=== PATIENT | female | born 1945 | race Caucasian/White ===

== ENCOUNTER 2020-07-27 16:39 | Observation (INO) ==
--- NOTE | 2020-07-27 17:15 | XRay Report ---
INDICATION: cp TECHNIQUE: AP portable upright chest x-ray COMPARISON: None FINDINGS:Surgical clips in left axilla Lungs:Lungs are negative. No focal pulmonary parenchymal infiltrate or mass Heart, vascular:No significant cardiomegaly. Pulmonary vascularity is normal. No pulmonary edema or pulmonary congestion Mediastinum, richard:No mediastinal widening. No hilar mass Pleura:Mildly elevated right hemidiaphragm. Pleural sutures in the left lung apex Skeletal:Negative. IMPRESSION: 1. No acute abnormality 2. Mildly elevated right hemidiaphragm 3. Surgical pleural sutures in the left upper hemithorax Interpreted and Authenticated by: Jeff Merchant 07/27/20
[2020-07-27] MEDS ORDERED: ONDANSETRON 4 MG/2 ML VIAL IV ONE (17:16)
[2020-07-27] MEDS ORDERED: LACTATED RINGERS 1,000 ML IV ONE (17:21)
[2020-07-27] MEDS ORDERED: HYDROmorphone 1 MG/ML SYRINGE IV PRN (17:21)
--- NOTE | 2020-07-27 17:39 | Emergency Department Note ---
HPI General Chief complaint: Chest Pain Stated complaint: CHEST PAIN Time Seen by Provider: 07/27/20 16:55 Source: patient Mode of arrival: ambulatory Limitations: no limitations History of Present Illness HPI Narrative: Narrative: Patient is a pleasant 75-year-old female who presents with 2 to 3 days of right upper quadrant abdominal pain. She noted that it actually may have started earlier in the week after she had had pizza but seem to get better. She has been with persistent right upper quadrant pain with intermittent nausea vomiting over the past 2 days. She denies any fall or trauma. She does not have any trouble breathing but the pain seems to take her breath away and the right upper quadrant pain gets worse when she takes a deep breath. She has not had any diarrhea. No blood in the vomitus. She notes that it radiates around to her right mid back but no radiation to the shoulder blade. She is on Eliquis for treatment of atrial fibrillation. She has not had any urinary problems. She is with a history of prior breast cancer treated 2 years ago with lumpectomy and lymph node resection. Related Data Home Medications Medication Instructions Recorded Confirmed apixaban 5 mg tablet 5 mg PO BID 05/08/19 07/27/20 halobetasol propionate 0.05 % 1 applic TOPICAL BID 05/08/19 07/27/20 topical ointment amlodipine 5 mg tablet 5 mg PO QDAY 05/09/19 07/27/20 anastrozole 1 mg tablet 1 mg PO QDAY 05/09/19 07/27/20 calcium phosphate 250 mg-vit D3 2 tab PO QDAY tab 05/09/19 07/27/20 12.5 mcg (500 unit) chewable tablet cholecalciferol (vitamin D3) 1,000 unit PO QDAY ml 05/09/19 07/27/20 Previous Rx's Medication Instructions Recorded metoprolol succinate 50 mg 50 mg PO QDAY #90 tab 06/30/20 tablet,extended release 24 hr Allergies Allergy/AdvReac Type Severity Reaction Status Date / Time latex Allergy Unknown Rash Verified 07/27/20 16:41 promethazine [From Phenergan] Allergy Unknown Agitation Verified 07/27/20 16:41 Sulfa (Sulfonamide Allergy Unknown Rash Verified 07/27/20 16:41 Antibiotics) Review of Systems ROS ROS Narrative: Narrative: A 10 system review of systems was performed and found to be negative except as outlined above. [facility] Narrative Patient History Narrative: Narrative: Medical/Surgical/Family History All Active Problems (Updated 07/28/20 @ 01:30 by Nelson Mercedes MD) Acute cholecystitis (Acute) Right knee pain (Acute) Right hip pain (Acute) Medicare annual wellness visit, initial (Acute) Vaginal itching (Acute) Tricuspid regurgitation (Chronic) Seasonal allergic rhinitis (Chronic) Malignant neoplasm of central portion of left female breast (Chronic) Hypertension (Chronic) Paroxysmal A-fib (Chronic) Depression with anxiety (Chronic) Eczema (Chronic) Pain of left hip joint (Chronic) Breast cancer (Chronic ~2018) Bleeding tendency (Chronic) Medical History Bleeding tendency Breast cancer (~2018) Left, followed by [facility] oncology Dr. Hui, had radiation and takes anastrozole Depression with anxiety 05/09/2019 PHQ 9= 2. stable on citalopram 20, continue follow-up 4 months 09/10/2019 stable, continue citalopram Eczema Followed by Dr. Joe dermatology Hypertension 05/09/2019 stable on amlodipine 5 and metoprolol 50, continue, follow-up 4 months 09/10/2019 continue current regimen of medication, return for fasting labs Malignant neoplasm of central portion of left female breast Medicare annual wellness visit, initial Pain of left hip joint Chronic, never has done physical therapy Paroxysmal A-fib Followed by [place] [facility]ology at [facility] Dr. Orellana and Pooja Pelayo Seasonal allergic rhinitis spring and fall, takes OTC medication and helpful Tricuspid regurgitation per cardiology Surgical History H/O: hysterectomy total, 1999, heavy bleeding due to veins History of bunionectomy of right great toe History of colonoscopy (~2012) Dr Augustin History of left breast biopsy (01/31/19) History of surgery Parietial pleurectomy Status post left breast lumpectomy radiation dr Angela Family History Father Arthritis A-fib Brother Cancer High blood pressure 2 brothers Heart attack Cancer of kidney Prostate cancer Mesothelioma A-fib Sister Cancer CLL (chronic lymphocytic leukemia) Thyroid disorder Grandfather Cancer Maternal Tuberculosis Maternal Malignant tumor of colon Maternal Family/Other Diabetes Maternal Aunt Tuberculosis Maternal Uncle Mother High blood pressure Chronic vertigo High cholesterol Unknown Rheumatoid arthritis Social History Smoking Status: Never smoker Alcohol Intake Frequency: 0-2 drinks per day Substance Use: does not use Exam Narrative Narrative: Narrative: General: Alert, Nontoxic, speaking full sentences without dyspnea. Accompanied by her Vinny. She is with intermittent dry heaves. HEENT: NCAT, PERRL, Oral pharynx with moist mucus membranes. No pharyngeal eryt дмитрий. No conjunctival pallor Neck: Supple, No lymphadenopathy Chest: Stable Heart: Regular rate in the 80s to 90s at time of the exam and regular rhythm without murmur Lungs: Clear to auscultation bilaterally Abdomen: Soft, nondistended, nontender except in the right upper quadrant with equivocal Gutierrez sign : No bladder distention Back: Nontraumatic, No CVA tenderness to palpation. Skin: Left mid back eczema Extremity: No cyanosis or edema, pulses 2+ radial. No calf swelling or tenderness to palpation Neurologic: Moves all extremities in appropriate coordinated fashion. General Limitations: no limitations Course Vital Signs Vital signs: Vital Signs Temperature 97.0 F 07/27/20 16:39 Pulse Rate 82 07/27/20 16:39 Respiratory Rate 16 07/27/20 16:39 Blood Pressure 143/56 07/27/20 16:39 Pulse Oximetry (%) 98 07/27/20 16:39 Temperature 98.3 F 07/27/20 22:33 Pulse Rate 72 07/27/20 22:33 Respiratory Rate 16 07/27/20 22:33 Blood Pressure 152/79 07/27/20 22:33 Pulse Oximetry (%) 94 07/27/20 22:33 [facility] MDM Narrative Medical decision making narrative: Narrative: Patient presented with right upper quadrant pain primarily and with the description of the pain as well as the radiation as well as concern with gallbladder. Ultrasound did confirm cholelithiasis but also showed pericholecystic fluid and gallbladder wall thickening. Fortunately her liver function studies and lipase were normal. I believe her gallbladder findings on ultrasound are consistent with her symptoms. She is with good oxygen saturations no fever. Certainly she could be a consideration for outpatient follow-up with surgery but given that she has had recurrent episodes of nausea and retching here I feel that she would be more likely to fail attempted outpatient follow-up. I have consulted surgery and patient will be admitted for planned cholecystectomy. With her vomiting she had not taken her Eliquis today and hopefully would be candidate for procedure by tomorrow afternoon. Lab Data Result diagrams: 07/27/20 16:55 07/27/20 16:55 Labs: Lab Results 07/27/20 07/27/20 07/27/20 Range/Units 16:55 16:55 16:55 WBC 8.4 (4.5-11.0) K/mcL RBC 3.91 L (4.00-5.20) M/mcL Hgb 13.4 (12.0-15.0) g/dL Hct 39.7 (36.0-48.0) % MCV 101.5 H (80.0-100.0) fL MCH 34.3 H (26.0-34.0) pg MCHC 33.8 (31.0-36.0) g/dL RDW 12.6 (11.5-14.5) % Plt Count 301 (140-440) K/mcL MPV 10.1 (7.4-10.4) fL Neut % (Auto) 76.1 (38.0-78.0) % Lymph % (Auto) 15.1 (15.0-49.0) % [place] % (Auto) 5.5 (1.0-12.0) % Eos % (Auto) 2.8 (0.0-7.0) % Baso % (Auto) 0.5 (0.0-2.0) % Lymph # (Auto) 1.26 L (1.50-4.80) K/mcL [place] # (Auto) 0.46 (0.10-0.90) K/mcL Eos # (Auto) 0.23 (0.00-0.70) K/mcL Baso # (Auto) 0.04 (0.00-0.20) K/mcL Absolute Neutrophils 6.37 (1.80-8.00) K/mcL VBG Lactic Acid (0.5-2.0) mmol/L Sodium 134 (133-145) mmol/L Potassium 3.9 (3.3-5.1) mmol/L Chloride 98 (96-108) mmol/L Carbon Dioxide 26 (22-30) mmol/L Anion Gap 10.0 (8.0-16.0) BUN 17 (8-23) mg/dL Creatinine 1.0 (0.6-1.1) mg/dL GFR Calculation 55 Glucose 124 H (70-105) mg/dL Calcium 9.4 (8.6-10.4) mg/dL Total Bilirubin 0.8 (0.1-1.0) mg/dL AST 20 (<32) U/L ALT 16 (<40) U/L Alkaline Phosphatase 112 (39-117) U/L Troponin T < 0.01 (<0.03) ng/mL Total Protein 7.5 (5.9-8.4) gm/dL Albumin 4.1 (3.2-5.2) gm/dL Globulin 3.4 (2.2-3.7) gm/dL Albumin/Globulin Ratio 1.2 (1.0-2.3) Lipase (7-60) U/L 07/27/20 07/27/20 Range/Units 16:55 18:52 WBC (4.5-11.0) K/mcL RBC (4.00-5.20) M/mcL Hgb (12.0-15.0) g/dL Hct (36.0-48.0) % MCV (80.0-100.0) fL MCH (26.0-34.0) pg MCHC (31.0-36.0) g/dL RDW (11.5-14.5) % Plt Count (140-440) K/mcL MPV (7.4-10.4) fL Neut % (Auto) (38.0-78.0) % Lymph % (Auto) (15.0-49.0) % [place] % (Auto) (1.0-12.0) % Eos % (Auto) (0.0-7.0) % Baso % (Auto) (0.0-2.0) % Lymph # (Auto) (1.50-4.80) K/mcL [place] # (Auto) (0.10-0.90) K/mcL Eos # (Auto) (0.00-0.70) K/mcL Baso # (Auto) (0.00-0.20) K/mcL Absolute Neutrophils (1.80-8.00) K/mcL VBG Lactic Acid 1.7 (0.5-2.0) mmol/L Sodium (133-145) mmol/L Potassium (3.3-5.1) mmol/L Chloride (96-108) mmol/L Carbon Dioxide (22-30) mmol/L Anion Gap (8.0-16.0) BUN (8-23) mg/dL Creatinine (0.6-1.1) mg/dL GFR Calculation Glucose (70-105) mg/dL Calcium (8.6-10.4) mg/dL Total Bilirubin (0.1-1.0) mg/dL AST (<32) U/L ALT (<40) U/L Alkaline Phosphatase (39-117) U/L Troponin T (<0.03) ng/mL Total Protein (5.9-8.4) gm/dL Albumin (3.2-5.2) gm/dL Globulin (2.2-3.7) gm/dL Albumin/Globulin Ratio (1.0-2.3) Lipase 31 (7-60) U/L ED POC Tests ED POC Tests: FRANCHESCA - Influenza A Negative FRANCHESCA - Influenza B Negative FRANCHESCA - SARS Antigen Negative EKG Data EKG #1: EKG attestation: Yes I reviewed and interpreted this EKG. EKG results narrative: ECG time 1640 demonstrates sinus rhythm at a rate of 85. QRS axis normal. QRS duration normal and narrow. There were no ST or T wave changes concerning for ischemic process. Discharge Plan Patient/Caregiver Discharge Instructions Pt seen by TIRE DUSTER/PA only: No Clinical Impression: Acute cholecystitis Patient Disposition: Xfer As Inpt ([facility]) Condition: Fair Discharge Date/Time: 07/27/20 22:18
[2020-07-27] MEDS: HYDROmorphone 0.5 MG/0.5 ML SYRINGE IV PRN ×3 (17:40→22:55)
[2020-07-27 17:42] LABS: Basophils # (Auto) 0.04 K/mcL (0.00-0.20); Basophils % (Auto) 0.5 % (0.0-2.0); Eosinophils # (Auto) 0.23 K/mcL (0.00-0.70); Eosinophils % (Auto) 2.8 % (0.0-7.0); Hematocrit 39.7 % (36.0-48.0); Hemoglobin 13.4 g/dL (12.0-15.0); Lymphocytes # (Auto) 1.26 K/mcL (1.50-4.80); Lymphocytes % (Auto) 15.1 % (15.0-49.0); Mean Cell Volume 101.5 fL (80.0-100.0); Mean Corpuscular HGB Conc 33.8 g/dL (31.0-36.0); Mean Platelet Volume 10.1 fL (7.4-10.4); Monocytes # (Auto) 0.46 K/mcL (0.10-0.90); Monocytes % (Auto) 5.5 % (1.0-12.0); Neutrophils % (Auto) 76.1 % (38.0-78.0); Platelet Count 301 K/mcL (140-440); RBC 3.91 M/mcL (4.00-5.20); Red Cell Distribution Width 12.6 % (11.5-14.5); WBC 8.4 K/mcL (4.5-11.0)
[2020-07-27 18:09] LABS: ALT/SGPT 16 U/L (<40); AST/SGOT 20 U/L (<32); Albumin 4.1 gm/dL (3.2-5.2); Albumin/Globulin Ratio 1.2 (1.0-2.3); Alkaline Phosphatase 112 U/L (39-117); Bilirubin,Total 0.8 mg/dL (0.1-1.0); Blood Urea Nitrogen 17 mg/dL (8-23); Calcium 9.4 mg/dL (8.6-10.4); Carbon Dioxide 26 mmol/L (22-30); Chloride 98 mmol/L (96-108); Globulin 3.4 gm/dL (2.2-3.7); Glomerular Filtration Rate 55; Glucose 124 mg/dL (70-105)
--- NOTE | 2020-07-27 18:40 | Ultrasound Report ---
INDICATION: eval for cholelithiasis TECHNIQUE: Grayscale and color flow Doppler spectral imaging COMPARISON: None. FINDINGS: Gallbladder:Gallbladder is distended. There are multiple stones in the dependent portion of the gallbladder as well as biliary sludge. There are also stones at the gallbladder neck. Gallbladder wall is thickened and measures up to 7 mm. Gallbladder wall is irregular. There is gallbladder wall edema and pericholecystic fluid. Patient was tender when scanned over the gallbladder consistent with cholecystitis. Common bile duct:No definite intrahepatic bile duct dilatation. Common bile duct is mildly dilated. No detectable choledocholithiasis. Common bile duct measures8 mm Liver:There are multiple benign hepatic cysts. No detectable solid mass. Liver contour is smooth.. Liver [id number] cm Portal vein:Normal hepatopedal portal venous flow Pancreas:Visualized portions of the pancreas are normal IMPRESSION: 1. Distended gallbladder with multiple stones, gallbladder wall thickening, and pericholecystic fluid 2. Findings are consistent with cholecystitis 3. Mildly dilated common bile duct. No intrahepatic bile duct dilatation 4. Multiple benign simple cysts within the liver Interpreted and Authenticated by: eJff Merchant 07/27/20
[2020-07-27] MEDS ORDERED: PROCHLORPERAZINE 10 MG/2 ML VIAL IV ONE (19:48)
[2020-07-27] MEDS ORDERED: ONDANSETRON 4 MG/2 ML VIAL IV PRN ×2 (19:48→21:07)
[2020-07-27] MEDS ORDERED: diphenhydrAMINE 50 MG/ML VIAL IV ONE (19:49)
[2020-07-27] MEDS ORDERED: morphine 15 MG TABLET PO PRN (21:07)
[2020-07-27] MEDS ORDERED: ceFAZolin 2 GM in DEXTROSE 5% IN WATER 50 ML IV SCH (21:15)
[2020-07-27] MEDS: ONDANSETRON 4 MG/2 ML VIAL IV PRN (21:54)
[2020-07-27] MEDS: 0.9 % SODIUM CHLORIDE 10 ML SYRINGE IV SCH (22:47)
[2020-07-27] MEDS: LACTATED RINGERS 1,000 ML IV SCH (22:55)
[2020-07-27 23:38] LABS: Appearance,Urine CLEAR (Clear); Bacteria,Urine FEW /hpf (0); Bilirubin,Urine Negative (Negative); Color,Urine YELLOW; Culture Indicated,Urine Yes; Glucose,Urine (UA) 50 mg/dL (Negative); Ketones,Urine 5 mg/dL (Negative); Leukocyte Esterase,Urine 75 /ug (Negative); Mucus,Urine MOD /hpf; Nitrate,Urine Negative (Negative); Protein,Urine Negative (Negative); Specific Gravity,Urine 1.009 (1.000-1.035); Urine Blood Negative (Negative); Urine Hyaline Cast 5 /lph (0-2); Urine RBC 1 /hpf (0-3); Urine Squamous Epithelial Cell 2 /hpf (0-4); Urine WBC 6 /hpf (0-4); Urobilinogen,Urine Negative
[2020-07-28 00:31] LABS: POC INR 1.1 (0.8-1.2); POC Pro Time 13.4 sec (11.9-14.5)
[2020-07-28] MEDS: ONDANSETRON 4 MG/2 ML VIAL IV PRN ×2 (01:24→08:49)
[2020-07-28] MEDS: HYDROmorphone 0.5 MG/0.5 ML SYRINGE IV PRN ×4 (03:32→11:28)
[2020-07-28] MEDS: 0.9 % SODIUM CHLORIDE 10 ML SYRINGE IV SCH ×2 (04:03→15:06)
[2020-07-28] MEDS ORDERED: SCOPOLAMINE 1 PATCH PATCH TOPICAL PRN (05:00)
[2020-07-28] MEDS ORDERED: IPRATROPIUM/ALBUTEROL 3 ML AMPUL.NEB NEB PRN ×2 (05:00→13:27)
[2020-07-28] MEDS ORDERED: ceFAZolin 2 GM in DEXTROSE 5% IN WATER 50 ML IV SCH (06:00)
--- NOTE | 2020-07-28 08:41 | General Surg History&Physical ---
HPI History of Present Illness Patient information: Note initiated : 07/28/20 at 8:38 am Service Date, if different from initiated Date: [] Patient: Wen Mazariegos a 75 y/o F admitted on 07/27/20 for Chest pain. Chief Complaint: Abdominal pain History of present illness: Ms. Mazariegos is a 75 year old F who presented to the emergency room with approximately 1 week history of epigastric and right upper quadrant abdominal pain. She first noticed the pain after eating pizza. The pain gradually got better after a day or 2 but then has recurred multiple times this week. She reports mild nausea without emesis. She denies any fevers chills. She denies any prior history of similar sort of pains. The pain seemed to be brought on by eating, there were no alleviating factors with the pain. She was seen and worked up the emergency room with ultrasound consistent with acute cholecystitis Review of Systems Review of systems: All systems are reviewed, negative other than above PFSH PFSH All Active Problems Acute cholecystitis (Acute) Right knee pain (Acute) Right hip pain (Acute) Medicare annual wellness visit, initial (Acute) Vaginal itching (Acute) Tricuspid regurgitation (Chronic) Seasonal allergic rhinitis (Chronic) Malignant neoplasm of central portion of left female breast (Chronic) Hypertension (Chronic) Paroxysmal A-fib (Chronic) Depression with anxiety (Chronic) Eczema (Chronic) Pain of left hip joint (Chronic) Breast cancer (Chronic ~2019) Bleeding tendency (Chronic) Medical History Bleeding tendency Breast cancer (~2018) Left, followed by [facility] oncology Dr. Hui, had radiation and takes anastrozole Depression with anxiety 05/09/2019 PHQ 9= 2. stable on citalopram 20, continue follow-up 4 months 09/10/2019 stable, continue citalopram 07/08/2020 she tapered herself off citalopram last summer, trial of Zoloft, discussed use, rationale and side effects. Follow-up 2 months Eczema Followed by Dr. oJe dermatology Hypertension 05/09/2019 stable on amlodipine 5 and metoprolol 50, continue, follow-up 4 months 07/08/2020 stable, continue amlodipine 5 and metoprolol 50, return for fasting labs in September Malignant neoplasm of central portion of left female breast Medicare annual wellness visit, initial Pain of left hip joint Chronic, never has done physical therapy Paroxysmal A-fib Followed by [place] [facility] at [facility] Dr. Orellana and Pooja Pelayo Seasonal allergic rhinitis spring and fall, takes OTC medication and helpful Tricuspid regurgitation per cardiology Surgical History H/O: hysterectomy total, 1999, heavy bleeding due to veins History of bunionectomy of right great toe History of colonoscopy (~2012) Dr Augustin History of left breast biopsy (01/31/19) History of surgery Parietial pleurectomy Status post left breast lumpectomy radiation dr Angela Family History Father Arthritis A-fib Brother Cancer High blood pressure 2 brothers Heart attack Cancer of kidney Prostate cancer Mesothelioma A-fib Sister Cancer CLL (chronic lymphocytic leukemia) Thyroid disorder Grandfather Cancer Maternal Tuberculosis Maternal Malignant tumor of colon Maternal Family/Other Diabetes Maternal Aunt Tuberculosis Maternal Uncle Mother High blood pressure Chronic vertigo High cholesterol Unknown Rheumatoid arthritis Social History adopted: No caregiver/support person: No foster care: No household members: spouse housing: house lives independently: Yes marital status: education level: high school service: No penitentiary: No occupational status: retired occupational exposures/hazards: No pets and animals: Yes pets and animals: cat(s) and dog(s) leisure activities: art and reading hx recent travel: No sexually active: No alcohol intake frequency: 0-2 drinks per day substance use type: does not use MEDS/ALLERGIES Home Medications and Allergies Home Medications Medication Instructions Recorded Confirmed Type apixaban 5 mg tablet 5 mg PO BID 05/08/19 07/27/20 History halobetasol propionate 0.05 % 1 applic TOPICAL BID 05/08/19 07/27/20 History topical ointment amlodipine 5 mg tablet 5 mg PO QDAY 05/09/19 07/27/20 History anastrozole 1 mg tablet 1 mg PO QDAY 05/09/19 07/27/20 History calcium phosphate 250 mg-vit D3 2 tab PO QDAY tab 05/09/19 07/27/20 History 12.5 mcg (500 unit) chewable tablet cholecalciferol (vitamin D3) 1,000 unit PO QDAY ml 05/09/19 07/27/20 History metoprolol succinate 50 mg 50 mg PO QDAY #90 tab 06/30/20 07/27/20 Rx tablet,extended release 24 hr Allergies Allergy/AdvReac Type Severity Reaction Status Date / Time latex Allergy Unknown Rash Verified 07/27/20 16:41 promethazine [From Phenergan] Allergy Unknown Agitation Verified 07/27/20 16:41 Sulfa (Sulfonamide Allergy Unknown Rash Verified 07/27/20 16:41 Antibiotics) Physical Examination Vital Signs Vital signs: Temp Pulse Resp BP Pulse Ox 99.1 F H 74 18 142/81 92 07/28/20 07:34 07/28/20 07:34 07/28/20 07:34 07/28/20 07:34 07/28/20 07:34 General physical appearance General physical exam: well developed, well nourished and no distress Eyes Eye exam: PERRL and normal ocular movement ENT ENT exam: normal pinna, normal nares, normal mucosa, no hearing loss and no co ngestion Head Head exam IM: Present atraumatic and normocephalic Neck Neck exam: no masses, no bruits, trachea midline, no lymphadenopathy and no venous distension Cardiovascular Cardiovascular exam IM: Present normal rate and rhythm Respiratory Respiratory exam: normal expansion, normal respiratory effort, clear to percussion and clear to auscultation Abdomen Abdomen: Present soft, tender (Positive Gutierrez sign) and bowel sounds Hernia: Present none Genitourinary Genitourinary (Female): Present normal external genitalia Rectum Rectum: Present normal sphincter tone, no hemorrhoids, no tenderness, no masses and no bleeding Integumentary Integumentary: Present no rash, no growths and no abnormal pigmentation Neurologic Neurologic: Present normal coordination and normal sensation Musculoskeletal Musculoskeletal: Present normal gait and normal posture Psychiatric Psychiatric: Present oriented to time, oriented to person, oriented to place, speech is normal and memory intact Results Labs Result diagrams: 07/27/20 16:55 07/27/20 16:55 Labs: Abnormal lab results 07/27/20 07/27/20 07/27/20 Range/Units 16:55 16:55 22:22 RBC 3.91 L (4.00-5.20) M/mcL MCV 101.5 H (80.0-100.0) fL MCH 34.3 H (26.0-34.0) pg Lymph # (Auto) 1.26 L (1.50-4.80) K/mcL Glucose 124 H (70-105) mg/dL Urine Glucose (UA) 50 A (Negative) mg/dL Urine Ketones 5 A (Negative) mg/dL Ur Leukocyte Esterase 75 A (Negative) /ug Urine WBC 6 H (0-4) /hpf Urine Bacteria Few A (0) /hpf Hyaline Casts 5 H (0-2) /lph Urine Mucus Mod A (None) /hpf Diabetes panel 07/27/20 Range/Units 16:55 Sodium 134 (133-145) mmol/L Potassium 3.9 (3.3-5.1) mmol/L Chloride 98 (96-108) mmol/L Carbon Dioxide 26 (22-30) mmol/L BUN 17 (8-23) mg/dL Creatinine 1.0 (0.6-1.1) mg/dL Glucose 124 H (70-105) mg/dL Calcium 9.4 (8.6-10.4) mg/dL AST 20 (<32) U/L ALT 16 (<40) U/L Alkaline Phosphatase 112 (39-117) U/L Total Protein 7.5 (5.9-8.4) gm/dL Albumin 4.1 (3.2-5.2) gm/dL Calcium panel 07/27/20 Range/Units 16:55 Calcium 9.4 (8.6-10.4) mg/dL Albumin 4.1 (3.2-5.2) gm/dL Pituitary panel 07/27/20 Range/Units 16:55 Sodium 134 (133-145) mmol/L Potassium 3.9 (3.3-5.1) mmol/L Chloride 98 (96-108) mmol/L Carbon Dioxide 26 (22-30) mmol/L BUN 17 (8-23) mg/dL Creatinine 1.0 (0.6-1.1) mg/dL Glucose 124 H (70-105) mg/dL Calcium 9.4 (8.6-10.4) mg/dL Adrenal panel 07/27/20 Range/Units 16:55 Sodium 134 (133-145) mmol/L Potassium 3.9 (3.3-5.1) mmol/L Chloride 98 (96-108) mmol/L Carbon Dioxide 26 (22-30) mmol/L BUN 17 (8-23) mg/dL Creatinine 1.0 (0.6-1.1) mg/dL Glucose 124 H (70-105) mg/dL Calcium 9.4 (8.6-10.4) mg/dL Total Bilirubin 0.8 (0.1-1.0) mg/dL AST 20 (<32) U/L ALT 16 (<40) U/L Alkaline Phosphatase 112 (39-117) U/L Total Protein 7.5 (5.9-8.4) gm/dL Albumin 4.1 (3.2-5.2) gm/dL All other labs normal. A/P Narrative A/P Narrative: This is a pleasant 75-year-old female who presents with signs and symptoms consistent with acute cholecystitis. Plan admit, n.p.o. I will take to the operating room for laparoscopic cholecystectomy this admission. Time Spent With Patient Time: Total time spent is greater than 50% in coordination of care (as documented) at patient's floor/unit and/or counseling patient:
[2020-07-28] MEDS: LACTATED RINGERS 1,000 ML IV SCH ×5 (08:49→21:03)
[2020-07-28] MEDS ORDERED: ROCURONIUM 10 MG/ML ML IV ONE (13:10)
[2020-07-28] MEDS ORDERED: PROPOFOL 200 MG/20 ML VIAL IV ONE (13:10)
[2020-07-28] MEDS ORDERED: DEXAMETHASONE 10 MG/ML VIAL ONE (13:10)
[2020-07-28] MEDS ORDERED: fentaNYL 100 MCG/2 ML VIAL IV ONE (13:10)
[2020-07-28] MEDS ORDERED: ONDANSETRON 4 MG/2 ML VIAL ONE (13:10)
[2020-07-28] MEDS ORDERED: MAGNESIUM SULFATE 2 GM/50 ML BAG IV ONE (13:10)
[2020-07-28] MEDS ORDERED: LIDOCAINE HCL/PF 100 MG/5 ML SYRINGE IV ONE (13:10)
[2020-07-28] MEDS ORDERED: SUGAMMADEX SODIUM 200 MG/2 ML VIAL IV ONE (13:10)
[2020-07-28] MEDS ORDERED: KETAMINE 100 MG/ML ML ONE (13:10)
[2020-07-28] MEDS ORDERED: LIDOCAINE W/EPI 1% 20 ML VIAL IJ ONE (13:24)
[2020-07-28] MEDS ORDERED: BUPIVACAINE 0.5% 50 ML VIAL IJ ONE (13:24)
[2020-07-28] MEDS ORDERED: BENZOCAINE/MENTHOL 1 LOZENGE PO PRN (13:27)
[2020-07-28] MEDS ORDERED: LACTATED RINGERS 250 ML IV PRN (13:27)
[2020-07-28] MEDS ORDERED: ONDANSETRON 4 MG/2 ML VIAL IV PRN (13:27)
[2020-07-28] MEDS ORDERED: MEPERIDINE 25 MG/ML VIAL IV PRN (13:27)
[2020-07-28] MEDS ORDERED: diphenhydrAMINE 50 MG/ML VIAL IV PRN (13:27)
[2020-07-28] MEDS ORDERED: ACETAMINOPHEN 1,000 MG/100 ML BAG IV ONE (13:27)
[2020-07-28] MEDS ORDERED: fentaNYL 100 MCG/2 ML VIAL IV PRN (13:27)
[2020-07-28] MEDS ORDERED: NALOXONE HCL 0.4 MG/ML VIAL IV PRN (13:27)
[2020-07-28] MEDS ORDERED: LACTATED RINGERS 1,000 ML IV SCH (13:30)
--- NOTE | 2020-07-28 14:16 | Operative Note ---
Brief Operative Note Date of procedure: 07/28/20 Pre-op diagnosis: Acute cholecystitis Post-op diagnosis: other (Acute on chronic cholecystitis) Procedure: Laparoscopic cholecystectomy Anesthesia: GETA Findings: Severe acute on chronic inflammation, cholelithiasis Complications: none Surgeon: Christian Coleman Estimated blood loss (cc): 25 Specimens Removed/Pathology: other (Gallbladder and contents) Condition: stable Disposition: floor Operative Note Operative Note: After risk benefits and alternatives to the procedure were discussed with the patient at length she verbalized understanding and desire to continue with the procedure. Patient was taken main operating room placed upon the operative table. General esthesia was over endotracheal tube. Patient's prepped and draped in the standard sterile surgical fashion. Surgical timeout was taken to verify patient and procedure being performed. 1% lidocaine half percent Marcaine was used for local anesthesia throughout the case. Left upper quadrant incision was made, a varies needle was inserted and the abdominal cavity was insufflated with carbon dioxide. The abdominal cavity was then entered under direct vision using a 5 mm Optiview trocar through a supraumbilical incision. Visual inspection revealed no injuries and the varies needle was removed under direct vision. 12 mm upper midline trocar, 5 mm right upper quadrant, and a second 5 mm right upper quadrant trochars were all placed under direct vision. Patient was placed in a head up right side up position. Attention was turned to the gallbladder w ere dense amount of adhesions were found attached to a grossly distended gallbladder. The adhesions were carefully taken down with blunt and electrocautery dissection. The gallbladder was not able to be grasped therefore was opened and suctioned free. There is a large amount of cholelithiasis which was kept inside the gallbladder. Attention was then turned to the triangle ROJELIO where careful blunt dissection was undertaken to fully identify the critical view of safety. Once a critical view of safety was clearly identified cystic duct and cystic artery were surgically clipped and transected. The gallbladder was removed from the gallbladder fossa using electrocautery this placed in Endo Catch bag removed through the upper midline incision and passed off the field for surgical pathology. Attention was turned back to the gallbladder fossa which was copiously irrigated, all irrigation was suctioned free from the abdominal cavity. Gallbladder fossa was inspected for hemostasis and found to be hemostatic. The upper midline fascial defect was then reapproximated with a interrupted 0 Vicryl suture. CO2 and trochars were removed from the abdominal cavity under direct vision. Trocar sites were inspected for hemostasis. Skin edges were closed with interrupted 4 Monocryl sutures skin glue dressings were applied. Patient was then awakened from anesthesia transported postanesthesia care unit awake alert in good condition.
[2020-07-28] MEDS ORDERED: HYDROmorphone 0.5 MG/0.5 ML SYRINGE IV PRN (15:07)
[2020-07-28] MEDS ORDERED: morphine 15 MG TABLET PO PRN (15:07)
[2020-07-28] MEDS: APIXABAN 5 MG TABLET PO SCH (21:03)
[2020-07-29] MEDS: LACTATED RINGERS 1,000 ML IV SCH ×2 (02:53→10:06)
--- NOTE | 2020-07-29 08:10 | Discharge Summary ---
Discharge Provider Provider Patient information: Note initiated : 07/29/20 at 8:09 am Service Date, if different from initiated Date: [] Patient: Wen Mazariegos 75 y/o F admitted on 07/27/20 for Chest pain. Chief Complaint: [] Date of admission: 07/27/20 22:18 Discharge date: 07/29/20 Primary care physician: LLUVIA Roth Consults: 07/27/20 Consult to Physician [CONS] Stat Comment: Consulting Provider: Christian Coleman Reason For Exam: Physician to Consult COURSE Hospital Course Hospital course: Patient admitted for acute cholecystitis, underwent uneventful laparoscopic cholecystectomy Discharge diagnosis: Acute cholecystitis status post laparoscopic cholecystectomy Time Spent with Patient Time attestation: Total time spent providing and/or coordinating discharge services: Physical Examination Vital Signs Vital signs: Temp Pulse Resp BP Pulse Ox 97.8 F 68 20 125/68 94 07/29/20 07:32 07/29/20 07:32 07/29/20 07:32 07/29/20 07:32 07/29/20 07:32 Discharge Plan Patient/Caregiver Discharge Instructions Activity: increase activity as tolerated Diet: Regular Diet Activity Restrictions/Additional Instructions: Follow-up with me in clinic in 2 to 3 weeks. Progressive activity as tolerated, no lifting restrictions. Patient may shower as tolerated. Prescriptions: New ibuprofen 800 mg tablet 800 mg PO TID PRN (Reason: pain) Qty: 60 RF: 0 acetaminophen [Tylenol 8 Hour] 650 mg tablet extended release 650 mg PO Q8H PRN (Reason: pain) Qty: 60 RF: 0 oxycodone 5 mg tablet 5 mg PO Q6H PRN (Reason: pain) Qty: 5 RF: 0 Continued metoprolol succinate 50 mg tablet extended release 24 hr 50 mg PO QDAY Qty: 90 RF: 0 amlodipine 5 mg tablet 5 mg PO QDAY RF: 0 anastrozole 1 mg tablet 1 mg PO QDAY RF: 0 calcium phosphate-vitamin D3 [Citracal-D3 Gummies] 250 mg calcium- 500 unit tablet,chewable 2 tab PO QDAY RF: 0 cholecalciferol (vitamin D3) 1,000 unit/drop drops 1,000 unit PO QDAY RF: 0 Eliquis 5 mg tablet 5 mg PO BID RF: 0 halobetasol propionate 0.05 % ointment 1 applic TOPICAL BID RF: 0 Follow Up Plan Follow up with: Christian Coleman MD [Physician] - Patient Disposition: Home, Self-Care Hospital Course: Patient admitted with acute cholecystitis, underwent laparoscopic cholecystic. Patient is now returning to baseline and cleared for discharge Prognosis: Fair Overall status at discharge: patient is progressing back to baseline Discharge Orders: Discharge Order (Routine); Ordered 07/29/20 Ordered By: Christian Colmean Pending Pending Pending: Resuscitation Status Full Code Diet Regular Diet Start MonJul 28 1506 Apixaban (Apixaban 5 Mg Tablet) 5 mg PO BID [facility] Last Admin: 07/28/20 21:03 Dose: 5 mg Documented by: PB Hydromorphone HCl (Hydromorphone 0.5 Mg/0.5 Ml Syringe) 0.5 mg IV Q2HP PRN; Protocol PRN Reason: Per Pain Protocol Last Admin: 07/28/20 23:27 Dose: 0.5 mg Documented by: PB Lactated Ringer's (Lactated Ringers) 1,000 mls @ 100 mls/hr IV .Q10H [facility] Last Admin: 07/29/20 02:53 Dose: Not Given Documented by: Admin: 07/28/20 21:03 Dose: 100 mls/hr Documented by: Infusion: 07/28/20 21:03 Dose: 100 mls/hr Documented by: Admin: 07/28/20 16:07 Dose: 100 mls/hr Documented by: JOVANA Morphine Sulfate (Morphine 15 Mg Tablet) 15 mg PO Q4HP PRN; Protocol PRN Reason: Per Pain Protocol Last Admin: 07/28/20 21:03 Dose: 15 mg Documented by: PB Shift Summary 07/29/20 03:27 Shift Summary by Laine Pagan Pt is A&Ox4 using call light and making needs known. Medicated x1 with po morphine with little relief. Medicated x1 with Dilaudid. Pt ambulated in hallway last evening. Using bathroom to void QS. MIV continues to infuse. Surgical sites x5 to abd with Dermabond WNL. Pt denies nausea this shift. Pt should discharge today. Will update with verbal report. Initialized on 07/29/20 03:27 - END OF NOTE
[2020-07-29] MEDS: APIXABAN 5 MG TABLET PO SCH (08:11)
[2020-07-29] MEDS ORDERED: amLODIPine 5 MG TABLET PO SCH (09:00)
[2020-07-29] MEDS ORDERED: METOPROLOL SUCCINATE 50 MG TAB.XL.24H PO SCH (09:00)
--- NOTE | 2020-07-29 16:32 | Surgical Pathology Report ---
Histology Microscopic Diagnosis Specimen A- GALL BLADDER, CHOLECYSTECTOMY: --- GANGRENOUS ACUTE/CHRONIC CHOLECYSTITIS WITH EXTENSIVE MUCOSAL ULCERATION AND REACTIVE EPITHELIAL CHANGE. --- CHOLELITHIASIS. (ACP:sln) Procedural Impression Acute cholecystitis. Gross Description Received in formalin labeled gallbladder, is a xie-rubio gallbladder. It is 13.4 x 4.8 x 3 cm. There is not a clip on the duct. The specimen contains multiple stones from less than 0.1 to 1 cm. The mucosa is rubio and striated. There is a possible 0.5 cm perforated area that is up to 0.2 cm thick with up to 0.6 cm of rubio attached fat. [employer] sections are submitted in two cassettes with the area of possible perforation in cassette A2. (SCB:adj) Electronically Signed Con Ellsworth MD, FCAP Electronically Signed 07/29/2020 16:31
== END 2020-07-29 12:30 | disposition home or self-care (01) ==
LOC: MEDSUR 16:39 → ED 16:39 → MEDSUR 22:18
PROVIDERS: ADMIT Surgery; ATTEND Surgery